=== PATIENT | female | born 1950 | race Two or more races ===

== ENCOUNTER 2018-07-26 09:59 | Outpatient (CLI) | payer OTHER | END 2018-07-26 12:45 | disposition home or self-care (01) | LOC: MAMO-SONO 09:59 | DX: Z12.31 Encounter for screening mammogram for malignant neoplasm of breast (principal); Z87.898 Personal history of other specified conditions; N64.4 Mastodynia; N63.10 Unspecified lump in the right breast, unspecified quadrant; N63.20 Unspecified lump in the left breast, unspecified quadrant ==

== ENCOUNTER 2021-01-30 10:49 | Outpatient (CLI) | payer OTHER | END 2021-01-30 10:59 | disposition home or self-care (01) | LOC: MAMO-SONO 10:49 | DX: N60.01 Solitary cyst of right breast (principal); N60.02 Solitary cyst of left breast ==

== ENCOUNTER → 2022-08-21 | Outpatient (CLI) | payer OTHER | END | disposition home or self-care (01) | LOC: MAMO-SONO 09:29 | DX: Z12.31 Encounter for screening mammogram for malignant neoplasm of breast (principal); N60.01 Solitary cyst of right breast; N60.02 Solitary cyst of left breast ==